=== PATIENT | female | born 1990 | race Hispanic/Latino ===

== ENCOUNTER 2019-03-03 18:27 | Emergency (ER) | payer OTHER ==
[~2019-03-03] VITALS: Ht 154.9 cm; Wt 60.7 kg
[2019-03-03] MEDS ORDERED: birth control pill (18:32)
[2019-03-03] MEDS ORDERED: AUGMENTIN 875 MG TAB PO ONE (20:00)
[2019-03-03] MEDS ORDERED: LIDOCAINE 2% MDV 20 ML VIAL SC ONE (20:00)
[2019-03-03] MEDS ORDERED: AUGM875T28 PO (20:34)
[2019-03-03 20:45] VITALS: BP 122/63
== END 2019-03-03 20:52 | disposition home or self-care (01) ==
LOC: M ED 18:27
DX: S61.212A Laceration without foreign body of right middle finger without damage to nail, initial encounter (principal); S60.472A Other superficial bite of right middle finger, initial encounter; W54.0XXA Bitten by dog, initial encounter; Y92.009 Unspecified place in unspecified non-institutional (private) residence as the place of occurrence of the external cause; Z79.3 Long term (current) use of hormonal contraceptives

== ENCOUNTER 2019-06-02 18:34 | Emergency (ER) | payer OTHER ==
[~2019-06-02] VITALS: Ht 154.9 cm; Wt 59.1 kg
[2019-06-02 18:34] VITALS: BP 142/79
[~2019-06-02 18:34] MED LIST: AUGM875T28 PO; birth control pill
[2019-06-02] MEDS ORDERED: ADACEL/BOOSTRIX VACCINE (DIPHTH/PERTUSS/ACELL/TETANUS)0.5ML SYR (90715) IM ONE (22:45)
[2019-06-02] MEDS ORDERED: LIDOCAINE 2% MDV 20 ML VIAL SC ONE (22:45)
[2019-06-02] MEDS ORDERED: AUGM875T28 PO (23:30)
[2019-06-02] MEDS ORDERED: NEOSPORIN OINT 0.9 GM PKT (FLOOR STOCK) TOP ONE (23:30)
[2019-06-02] MEDS ORDERED: AUGMENTIN 875 MG TAB As Ordered ONE (23:39)
[2019-06-02] MEDS ORDERED: AUGMENTIN 875 MG TAB PO ONE (23:45)
--- NOTE | 2019-06-03 01:34 | REP ---
Clinical: Trauma. Dog bite. Technique: AP, lateral, bilateral oblique views right fifth digit . Findings: Laceration is suggested. The osseous structures and joint spaces are intact and normal. There is no evidence for acute fracture or dislocation. Surrounding soft tissues are unremarkable. No subcutaneous emphysema or radiodense foreign body. Impression: No subcutaneous emphysema or foreign body . No acute fracture or dislocation. Electronically Signed by Diego Toro MD 06/03/2019 01:25 A
== END 2019-06-02 23:46 | disposition home or self-care (01) ==
LOC: M ED 18:34
DX: S61.256A Open bite of right little finger without damage to nail, initial encounter (principal); W54.0XXA Bitten by dog, initial encounter; Y92.099 Unspecified place in other non-institutional residence as the place of occurrence of the external cause; Y93.K1 Activity, walking an animal; Y99.9 Unspecified external cause status; Z79.3 Long term (current) use of hormonal contraceptives